=== PATIENT | male | born 1955 | race Caucasian/White ===

== ENCOUNTER → 2018-08-07 09:48 | Outpatient (CLI) | payer MEDICARE ==
--- NOTE | 2018-08-09 09:40 | ST ---
PATIENT:KOTA NAIR MEDICAL RECORD: [id number] SEX: M LOCATION:[facility] ORDER #: ADMISSION DATE: 08/07/18 AGE OF PATIENT: 63 REFERRING PHYSICIAN: INTERPRETING PHYSICIAN: INDIGO GOODMAN MD DATE OF SERVICE: 08/07/2018 PROCEDURE: Nuclear stress test. INDICATIONS: Angina, family history of coronary artery disease. The patient was exercised on standard Lexiscan protocol with 30 mCi of sestamibi injected at peak stress, 11 mCi were used previously for rest images. FINDINGS: Gated SPECT reveals preserved ejection fraction at 66% with good wall motion and thickening and brightening throughout all segments. SPECT imaging Cardiolite was used as myocardial perfusion agent. There is homogeneous uptake throughout all segments at rest and stress with no evidence of inducible ischemia or previous infarction. OVERALL IMPRESSION: 1. This is a normal nuclear stress test with no evidence of inducible ischemia or previous infarction. 2. Gated SPECT reveals a preserved ejection fraction at 66%. In this patient with ongoing symptomatology, the current scan does not suggest the presence of hemodynamically significant coronary artery disease. Evaluate noncardiac etiology of chest pain. TRANSINT:[id number] Voice Confirmation ID: [id number] DOCUMENT ID: [id number] cc: SHUBHAM Heath [phone] INDIGO GOODMAN MD at 0940 CC: SHBUHAM HEATH [phone] DICTATION DATE: 08/07/18 1609 QA INTERNSHIP: 08/08/18 1008 DEP CLI 08/07/18 [place] [id number] [place] [id number]
== END | disposition home or self-care (01) ==
LOC: D.HCCARDIO 09:48
PROVIDERS: ATTEND Internal Medicine Cardiovascular Disease
DX: I20.9 Angina pectoris, unspecified (principal)